=== PATIENT | female | born 1980 | race Caucasian/White ===

== ENCOUNTER 2016-12-26 20:25 | Inpatient (IN) | payer OTHER ==
[~2016-12-26] VITALS: Ht 154.9 cm; Wt 67.1 kg
[~2016-12-26 20:25] MED LIST: Ondansetron 2 mg/mL 2 mL Inj ONE; Oxytocin 10 Unit/mL Inj ONE; Phenylephrine/NS-PF 100 mCg/mL 5 mL Syringe IVPUSH ONE; Propofol 10,000 mCg/mL 20 mL Inj ONE
[2016-12-26] MEDS ORDERED: Morphine PF 1 mg/mL 10 mL Inj ONE (21:21)
[2016-12-26] MEDS ORDERED: Lactated Ringer's 1,000 ML IV SCH (21:27)
[2016-12-26] MEDS ORDERED: CeFAZolin Inj 2 GM in IV Premix 1 EACH IV SCH (21:30)
[2016-12-26] MEDS ORDERED: Hemorrhage Kit, Post Partum XX ONE (21:30)
[2016-12-26] MEDS ORDERED: Sodium Citrate-Citric Acid 15 mL Solution PO SCH (21:30)
[2016-12-26] MEDS ORDERED: Methylergonovine 0.2 mg/mL Inj IM PRN (21:30)
[2016-12-26] MEDS ORDERED: Oxytocin 10 Unit/mL Inj IM PRN (21:30)
[2016-12-26] MEDS ORDERED: Carboprost 250 mCg/mL Inj IM PRN (21:30)
[2016-12-26 22:00] LABS: Mean Corpuscular Hemoglobin 31.8 pg (27.0-35.0); Mean Corpuscular Volume 92.7 fL (81-100)
[2016-12-26] MEDS ORDERED: PREN-56 PO (22:08)
--- NOTE | 2016-12-26 22:51 | HP ---
[address] [address] HISTORY AND PHYSICAL PATIENT: JENIFFER GRIFFIN : 1980 MR#: [id number] ADMIT: 12/26/2016 JOB ID: [id number] ADMISSION DIAGNOSIS: Active labor at 37 weeks with prior section. HISTORY OF PRESENT ILLNESS: The patient is a 36-year-old, 2, para 0-1-0-1 at 37 weeks gestational age by LMP finalized by her product assurance engineer at [facility] presenting with contractions every 1-2 minutes, cervical exam was 3 cm dilated cervix, 90% effaced, -4 station. The patient declined trial of labor after section and explained that she has a planned repeat with her product assurance engineer, Dr. Michael. The patient denied any vaginal bleeding. No leakage of fluid. Reports movements. OBSTETRICAL HISTORY: In 2008, a 34 week ended with a primary section for failure to progress with cephalopelvic disproportion. Infant was in OP position and course complicated by hemorrhage 1 L, uterine atony and B-Espinoza stitch placement and the current . PAST GYNECOLOGIC HISTORY: No history of STDs. No history of abnormal Pap smears. PAST MEDICAL HISTORY: Insignificant. PAST SURGICAL HISTORY: section x1. ALLERGIES: No known drug allergies. MEDICATIONS: vitamins. SOCIAL HISTORY: Denied any alcohol consumption. Denied any drugs of abuse. Denied any cigarette smoking. LABS: A-positive antibody negative, rubella nonimmune, serology nonreactive, hepatitis B surface antigen negative, HIV nonreactive, urine cultures negative. PHYSICAL EXAMINATION: Patient is alert, oriented x3. Vital signs are 133/74 for blood pressure, respirations are 16, pulse 91, temperature 36.1 degrees centigrade. Heart is regular rate and rhythm. Positive S1, S2. Lungs clear to auscultation bilaterally. Abdomen: Gravid uterus, nontender. Positive bowel sounds. Lower extremities: No calf tenderness appreciated bilaterally. Cervical exam: 3 cm dilated cervix, 90% effaced, -4 station. heart tracing showing baseline of 130 beats per minute, positive accelerations, no decelerations, moderate variability, reactive tracing. ASSESSMENT AND PLAN: The patient is a 36-year-old, 2, para 0-1-0-1 at 37 weeks gestational age admitted for active labor at term. Prior section x1. Desires repeat section. 1.The risks, benefits, alternatives were discussed and consent signed. 2. Antibiotic prophylaxis. 3. Sequential compression devices for deep venous thrombophlebitis prophylaxis. All the above discussed in details with the patient who agreed to the plan. WILLIAM
[2016-12-27] MEDS ORDERED: Acetaminophen IV 1,000 MG in IV Premix 1 EACH IV PRN (00:25)
[2016-12-27] MEDS ORDERED: Sodium Chloride LOK Flush 10 mL Syringe IVFLUSH PRN (00:25)
[2016-12-27] MEDS ORDERED: hydrOXYzine Pamoate 25 mg Capsule PO PRN (00:25)
[2016-12-27] MEDS ORDERED: Carboprost 250 mCg/mL Inj IM PRN (00:25)
[2016-12-27] MEDS ORDERED: Oxytocin 10 Unit/mL Inj IM PRN (00:25)
[2016-12-27] MEDS ORDERED: Hemorrhage Kit, Post Partum XX ONE (00:25)
[2016-12-27] MEDS ORDERED: Oxytocin 30 Units/500 mL LR 30 UNITS in IV Premix 1 EACH IV PRN (00:25)
[2016-12-27] MEDS ORDERED: Methylergonovine 0.2 mg/mL Inj IM PRN (00:25)
[2016-12-27] MEDS ORDERED: LANOlin HPA 7 Gm Ointment TOPICAL PRN (00:25)
[2016-12-27] MEDS ORDERED: Morphine PF 1 mg/mL 10 mL Inj INTRATHEC ONE (00:35)
[2016-12-27] MEDS ORDERED: Atropine 0.4 mg/mL Inj IV PRN (00:35)
[2016-12-27] MEDS ORDERED: Ondansetron 2 mg/mL 2 mL Inj IVPUSH PRN (00:35)
[2016-12-27] MEDS ORDERED: HYDROmorphone 1 mg/mL Inj IVPUSH PRN (00:35)
[2016-12-27] MEDS ORDERED: fentaNYL-PF 50 mCg/mL 2 mL Inj IVPUSH PRN (00:35)
[2016-12-27] MEDS ORDERED: EPHEDrine Sulfate 50 mg/mL Inj IVPUSH PRN (00:35)
[2016-12-27] MEDS ORDERED: MetoCLOpramide 5 mg/mL 2 mL Inj IVPUSH PRN (00:35)
[2016-12-27] MEDS ORDERED: Dexamethasone 4 mg/mL Inj IVPUSH PRN (00:35)
--- NOTE | 2016-12-27 00:36 | PCM.HPANE ---
Patient Data Surgeon Admitting Provider:Iglesia Shields MD Attending Provider:Iglesia Shields MD Primary Care Physician:Lexie Michael MD Other Provider:Maxi Arnold Anesthesia Reason for Visit Term Labor Check TERM LABOR CHECK Ht/WT & BMI Body Mass Index Allergies Coded Allergies: No Known Allergies (Unverified , 05/24/09) Medications Reported Medications Vaf834/Iron Fumarate/FA/Dss ( 19 Tablet)1 Each Tablet1 Each PO DAILY 12/26/16 History Smoking Status: Never Smoker Stop/Bang Risk Assessment Category Category 1A: Patient has history of documented sleep apnea, and HAS NOT received any narcotic, sedative or anesthesia administration during this stay. Category 1B: Patient has history of documented sleep apnea, and HAS received any narcotic , sedative or anesthesia administration during this stay Category 2: Patient has SUSPECTED Obstructive Sleep Apnea, and HAS received any narcotic , sedative or anesthesia administration during this stay. Category 3: Patient has SUSPECTED Obstructive Sleep Apnea and HAS NOT received narcotic, sedative or anesthesia administration during this stay. Category 4: Outpatient in Procedural Areas with known sleep apnea or who screen positive for High Risk via the STOP/BANG questionnaire. Exam Exam General Appearance: Alert, Oriented X3, Cooperative, Moderate Distress (labor pain) HEENT/AIRWAY: MP 2 Lungs: Clear to Auscultation, Normal Air Movement Heart: Exam Unremarkable, Regular Rate/Rhythm, No Murmurs/Rubs/Gallops Meds/Labs/Diagnostics Admission Meds Current Medications Lactated Ringer's (Lr) 1,000 ml @ 125 mls/hr Q8H IV Last administered on t 22:07; Start 12/26/16 at 21:27; Stop 12/27/16 at 05:26 Labs Test 12/26/16 21:50 White Blood Count 7.2th/mm3 (3.8-10.1) Red Blood Count 3.81mil/mm3 (3.90-5.20) Hemoglobin 12.1g/dL (12.0-15.6) Hematocrit 35.3% (35.0-46.0) Mean Corpuscular Volume 92.7fL (81-100) Mean Corpuscular Hemoglobin 31.8pg (27.0-35.0) Mean Corpuscular Hemoglobin Concent 34.3% (32.0-37.0) Red Cell Distribution Width 13.2% (12.3-15.4) Platelet Count 155bil/L (150-400) Plan Impression Patient chart reviewed, patient interviewed and anesthestic plan with risks, benefits, and alternatives discussed, and informed consent obtained. NPO Status: > 8hrs ASA Physical Status: ASA2 Mod Systemic Disease Anesthetic Plan: SAB Bene/Risks/Altern/Consents: Yes HP Complete Prior to Induction: Yes Berlin Connors MD Dec 26, 2016 22:36
--- NOTE | 2016-12-27 00:44 | PCM.ANEP1 ---
Post Anesthesia Phase 1 PACU Phase 1 Assessment Anesthetic Administered: SAB Level of Alertness: Awake, talking HENRIQUEZ's with Equal Strength: No Pain: No Nausea or Vomiting: No Oxygen Delivery: Room Air Lungs: Clear to Auscultation, Normal Air Movement Dermatome Level: T10 (Umbilicus) Berlin Connors MD Dec 27, 2016 00:44
--- NOTE | 2016-12-27 00:48 | PCM.ANEP2 ---
Post Anesthesia Evaluation ASA/CMS Post Anesthesia VS in Patient's Normal Range?: Yes Resp Stable; Airway Patent?: Yes CV Function & Hydration Stable: Yes Mental Status Recovered?: Yes Pain control Satisfactory?: Yes N/V Control Satisfactory?: Yes Berlin Connors MD Dec 27, 2016 00:48
--- NOTE | 2016-12-27 01:31 | OP ---
[address] [address] OPERATIVE REPORT PATIENT: JENIFFER GRIFFIN : 1980 MR#: [id number] ADMIT: 12/26/2016 JOB ID: [id number] DATE OF SURGERY: 12/26/2016 PREOPERATIVE DIAGNOSIS(ES): A 36-year-old, 2, para 0-1-0-1, at 37 weeks gestational age, presenting in active labor with contractions every 1-2 minutes. Cervix is 3 cm dilated, 90% effaced. History of prior section. The patient declined trial of labor after . Opted to proceed with a repeat . POSTOPERATIVE DIAGNOSIS(ES): A 36-year-old, 2, para 0-1-0-1, at 37 weeks gestational age, presenting in active labor with contractions every 1-2 minutes. Cervix is 3 cm dilated, 90% effaced. History of prior section. The patient declined trial of labor after . Opted to proceed with a repeat . PROCEDURES: 1. Repeat low transverse section. 2. Lysis of adhesions. SURGEON: Leon Daniel MD. STOCK WETTER: Dr. Haley. ANESTHESIA: Spinal. ESTIMATED BLOOD LOSS: 600 cc. INTRAVENOUS FLUIDS: 2 L of crystalloid. COMPLICATIONS: None. SPECIMENS: Placenta disposed. FINDINGS: 1. Normal fallopian tubes and ovaries bilaterally. 2. Extensive adhesions of the anterior uterine surface to the abdominal wall. 3. Single viable female with Apgars 7/8, weight of 3470 g. Baby was in left occiput posterior position. PROCEDURE: Risks, benefits and alternatives of the procedure discussed with the patient. Informed consent signed. Patient moved to the OR with IV running. After spinal anesthesia was found to be adequate, the patient was prepped and draped in the normal sterile fashion. Pfannenstiel skin incision was made with a scalpel at the upper edge of the prior section scar, and carried down to the underlying rectus fascia with the scalpel. Fascial incision extended bilaterally with Lopez scissors. Inferior aspect of the fascial incision was grasped with Jn clamps, elevated, tented up, rectus muscle dissected off bluntly. Attention was then turned to the superior aspect of fascial incision, which in similar fashion was grasped with Jn clamps, elevated, tented up, and rectus muscle dissected off bluntly and sharply. Rectus muscles were then in the midline with sharp dissection using scalpel. The peritoneum entered with the surgeon's right hand bluntly. There was noted to be extensive adhesions of the anterior uterine wall to the abdominal wall that were lysed gradually with clamping bands of adhesions between two clamps, cutting and coagulating, and sometimes using 2-0 chromic sutures for hemostasis. Then, we continued with gradual blunt and sharp dissection until the anterior uterine wall was completely released off the abdominal wall. Bladder blade inserted. The vesicouterine peritoneum identified, but there was no bladder flap to be created. There were adhesions at that area of the lower uterine segment. An incision was made in the lower uterine segment that was extended transversely with the bandage scissors. membranes ruptured, clear fluid obtained. Infant head delivered atraumatically through the incision, followed by the rest of the body. Delayed cord clamping allowed for 60 seconds. Infant handed off to awaiting nurse. Placenta followed spontaneously. Uterus exteriorized and cleared of all clots and debris. The uterine incision repaired in two layers, first a continuous locked fashion with 0-Vicryl suture, second layer of imbrication with 0-Vicryl suture. Pitocin, 40 units, injected in the IV fluid once the placenta was delivered. Firm uterine fundus observed. Suction and irrigation confirmed hemostasis. Uterus returned back to the abdomen. All instruments removed from patient's abdomen. Interceed inserted over the lysed adhesions on the anterior surface of the uterus and on the repaired hysterotomy to prevent further future adhesion formation. Muscle approximated in midline with interrupted sutures of 2-0 chromic. Fascia closed in a continuous fashion with 0-Vicryl suture. Skin closed in subcuticular fashion with 4-0 Vicryl suture. Steri-Strips and pressure dressing applied. Patient tolerated the procedure well. Sponge, lap, needle and instrument counts were correct x2. The patient went to recovery in stable condition. Dr. Daniel was present and scrubbed for the entire procedure. WILLIAM
[2016-12-27] MEDS: Lactated Ringer's 1,000 ML IV SCH ×3 (03:20→16:22)
--- NOTE | 2016-12-27 09:35 | PCM.PNOBPP ---
Subjective Date of Service Dec 27, 2016 Post : Repeat Ceserean Delivery Subjective 36 female (now) s/p repeat cesarian with no complications. Pt unable to ambulate secondary to nausea. Lee cath still in place. Little appetite secondary to nausea. Pt states pain is well controlled, passing gas, no BM Lochia: Normal Pain Management: PO pain meds Group B Strep Results: Negative Rubella: Non-Immune Blood Type: A RH Type: Positive Labs Laboratory Tests 12/26/16 21:50: White Blood Count 7.2, Red Blood Count 3.81, Hemoglobin 12.1, Hematocrit 35.3, Mean Corpuscular Volume 92.7, Mean Corpuscular Hemoglobin 31.8, Mean Corpuscular Hemoglobin Concent 34.3, Red Cell Distribution Width 13.2, Platelet Count 155 Exam Vital Signs Vital Signs BP 100/50, HR 82, RR 16, temp 36.2 Vital Signs Date Time Temp Pulse Resp B/P Pulse Ox O2 Delivery O2 Flow Rate FiO2 12/27/16 00:44 Room Air Vital Signs: VS reviewed, stable Exam Abdomen: Abdomen appropriately tender : Lee catheter Extremities: No edema Lungs: Clear to Auscultation, Normal Air Movement Heart: Exam Unremarkable, Regular Rate/Rhythm General: Alert, Oriented X3, Cooperative Surgical Wound : Dressing & Drainage Status: Dry & Intact OB Post Assessment/Plan Assessment 36 female status post repeat cesarian. Mother doing well. Problems: (1) S/P repeat low transverse Plan: Continue supportive care Status: Acute ICD Code: Z98.89 Pain Evaluation: Adequate Pain Control Post plan: Continue routine post care, Discharge home tomorrow Attending Statement The patient was seen and examined together and I agree with the history, exam and plan as outlined in the note above. POD#1 s/p repeat low transverse . Doing well this morning. Meeting all postoperative goals, urine output is adequate. labs are stable. Will remove lee catheter later today, ambulate and advance diet as tolerated. NANCY DEL CID DO Dec 27, 2016 06:50 Kaitlynn Colindres MD Dec 28, 2016 22:51
[2016-12-27] MEDS: Ascorbic Acid 500 mg Tablet PO SCH (12:05)
[2016-12-27] MEDS ORDERED: Measles-Mumps-Rubella Vaccine 0.5 mL Inj SUBQ ONE (16:45)
[2016-12-28 07:02] LABS: Mean Corpuscular Hemoglobin 31.8 pg (27.0-35.0); Mean Corpuscular Volume 96.2 fL (81-100)
[2016-12-28] MEDS: Ascorbic Acid 500 mg Tablet PO SCH (08:20)
--- NOTE | 2016-12-28 09:29 | PCM.DIOB ---
Obstetrical Disch Instruction Dates of Hospitalization Date of Hospital Admission Dec 26, 2016 at 21:20 Providers Admitting Physician: Iglesia Shields MD Primary Care Physician: Lexie Michael MD Attending Physician: Iglesia Shields MD Discharge Diagnosis Discharge Diagnosis 12/28/2016 Problems: (1) S/P repeat low transverse Status: Acute ICD Code: Z98.89 Diet Discharge Diet: No restrictions Activity Discharge Activity-General: Pelvic Rest for 6 weeks, Try not to overdue, Be up and about, No lifting >10 pounds for 4-6 weeks Dressing and Incisional Care Hygiene: May shower, NO bathtub, hot tub or whirlpool Follow Up Plan Follow-up appointment: Weeks (2 week incision check and 6 week check ) Call your provider for: Fever or Chills, Shortness of breath, Heavy vaginal bleeding, Heavy bleeding, Red painful breasts Kaitlynn Colindres MD Dec 28, 2016 09:29
[2016-12-28] MEDS ORDERED: FERR-74 PO (09:30)
[2016-12-28] MEDS ORDERED: IBUP800T28 PO (09:30)
[2016-12-28] MEDS ORDERED: OXYC1TAB24 PO (09:30)
[2016-12-28] MEDS ORDERED: DOCU-41 PO (09:30)
--- NOTE | 2016-12-28 11:06 | DIS ---
[address] [address] DISCHARGE SUMMARY PATIENT: JENIFFER GRIFFIN : 1980 MR#: [id number] ADMIT: 12/26/2016 JOB ID: [id number] DIS: 12/28/2016 ADMISSION DIAGNOSIS: 1. A 36-year-old, G 2, P 0-1-0-1 at 37 weeks gestation in active labor. 2. History of x1 for cephalopelvic disproportion declining . 3. Rubella non immune DISCHARGE DIAGNOSES: 1. A 36-year-old, G 2, P 0-1-0-1 at 37 weeks gestation in active labor. 2. History of x1 for cephalopelvic disproportion declining . 3. Rubella non immune PROCEDURE PERFORMED: Repeat low-transverse section of a live born female infant, born on December 27, 2014 weighing 3470 g with Apgars of 7 at one minute, 8 at five minutes. LABORATORY DATA: Blood type A positive. Antibody screen negative. Rubella nonimmune. Hep B surface antigen negative, RPR nonreactive, HIV negative. GBS negative. REASON FOR ADMISSION: This 36-year-old G 2, P 0-1-0-1 female presented at 37 weeks gestational age complaining of regular uterine contractions. She was checked and noted to be 3 cm dilated, and was in active labor. She declined a trial of labor after section and so was admitted for a repeat section which occurred on December 27, 2016. HOSPITAL COURSE: The patient was admitted in active labor and underwent a repeat section as noted above. Please see the operative report for details regarding this. There was noted to be extensive adhesions to the anterior abdominal wall at the time of section. Postoperatively the patient did very well. On postoperative day #1, her pain was well controlled. She was tolerating a regular diet. Her Bland catheter was removed and she was able to void and ambulate well on her own. By postoperative day #2, she continued to be meeting all postoperative goals and she was passing flatus. Her lochia was noted to be minimal and her was stable. Her incision was clean, dry, and intact and she was overall doing very well. She received a rubella vaccine on day #1, given her rubella nonimmune status. laboratory data showed a hemoglobin of 9.3, white count of 7.3, and platelets of 135, and it was on postop day #2 that she was deemed to be stable for discharge. INSTRUCTIONS AT DISCHARGE: The patient was advised to remain on pelvic rest for six weeks including no tampons,douching or intercourse. She was asked to call with any signs or symptoms of infection including severe pain, temperature greater than 100.5 degrees, heavy vaginal bleeding, filling more than a pad per hour, or malodorous vaginal discharge. She was asked to return in one week for an incision check and then again in six weeks for a routine six week check. She was rubella nonimmune at the time of admission, did receive her vaccine prior to discharge and her blood type is Rh positive and no RhoGAM was indicated. She was discharged home on Percocet 5/325 1-2 tabs p.o. q.4 hours p.r.n. pain, dispensed #30 as well as ibuprofen 800 mg p.o. q.8 hours p.r.n. pain, dispensed #60, and Colace 100 mg p.o. b.i.d., dispensed #60. All questions and concerns of the patient were answered prior to discharge. She is deemed stable for discharge on postoperative day #2. WILLIAM
[2016-12-28 14:53] VITALS: BP 115/66; PULSE 83; RESP 16
== END 2016-12-28 15:00 | disposition home or self-care (01) | DRG 766 ==
LOC: FBCO 20:25 → FBC 21:20
PROVIDERS: ADMIT Obstetrics & Gynecology; ATTEND Obstetrics & Gynecology
PROC: 0UN90ZZ Release Uterus, Open Approach (ICD-10-PCS; 2016-12-26)
PROC: 10D00Z1 Extraction of Products of Conception, Low, Open Approach (ICD-10-PCS; principal; 2016-12-26 23:00)
DX: O34.211 Maternal care for low transverse scar from previous cesarean delivery (principal); O75.82 Onset (spontaneous) of labor after 37 completed weeks of gestation but before 39 completed weeks gestation, with delivery by (planned) cesarean section; Z3A.37 37 weeks gestation of pregnancy; Z37.0 Single live birth; N99.4 Postprocedural pelvic peritoneal adhesions